=== PATIENT | male | born 1960 | race African-American/Black ===

== ENCOUNTER 2016-09-14 01:19 | Emergency (ER) | payer OTHER, MEDICAID ==
[2016-09-14 01:26] VITALS: BP 149/75; BMI 25.6
--- NOTE | 2016-09-14 02:30 | DR.GENAD ---
HPI - Complaint/Symptoms Chief Complaint Doctors Comments: Patient states that he has bronchitis. He is intoxicated. He states that he has been using cocaine and he wants to be seen by mental health. Chief Complaint:: SHORT OF BREATH , DRUG ABUSE - Timing Onset of Chief Complaint: 09/14/16 PMH - PMH Past Medical History: Yes Past Medical History: Anxiety, Arthritis, CVA, Diabetes, Hypertension, ID, Seizures Past Surgical History: Yes Surgical History: Ortho Surgery - Family History History of Family Medical Conditions: Yes Family Medical History: Diabetes Mellitus, ID, Hypertension - Social History Does patient currently use any type of tobacco product: Yes Have you used tobacco products in the last 12 months: Yes Type of Tobacco Use: Cigarettes Does any household member use tobacco: No Alcohol Use: Heavy Do you use any recreational Drugs:: Yes (COCAINE) Lives With: Other Lives Where: Homeless - infectious screening In the last 2 months have you had wt loss of >10#?: NO Have you had fever, night sweats or hemotysis?: No Have you traveled outside the country in the last 6 months?: No Isolation: Standard ROS - Review of Systems Eyes: No Symptoms Reported ENTM: No Symptoms Reported Respiratoy: No Symptoms Reported Cardiovascular: No Symptoms Reported Gastrointestinal/Abdominal: No Symptoms Reported Genitourinary: No Symptoms Reported Neurological: No Symptoms Reported Musculoskeletal: No Symptoms Reported Integumentary: No Symptoms Reported Hematologic/Lymphatic: No Symptoms Reported Endocrine: No Symptoms Reported Psychiatric: No Symptoms Reported All Other Systems: Reviewed and Negative PE - Vital Signs Vitals: Temperature 97.6 F Pulse Rate 106 Respiratory Rate 24 Blood Pressure [Left Arm] 170/80 Blood Pressure [Right Arm] 138/72 Blood Pressure 149/75 O2 Sat by Pulse Oximetry 96 - General General Appearance: Alert - Head Head Exam: Normal Inspection - Eyes Eye exam: Normal Appearance, PERRL, EOMI - ENT ENT Exam: Normal Exam External Ear Exam: Normal External Inspection TM/Canal Exam: Bilateral Normal Nose Exam: Normal Nose Exam Mouth Exam: Normal Inspection Throat Exam: Normal Inspection - Neck Neck Exam: Normal Inspection - Chest Chest Inspection: Normal Inspection - Respiratory Respiratory Exam: Normal Lung Sounds Bilat Respiratory Exam: Bilateral Clear to Auscultation - Cardiovascular Cardiovascular Exam: Regular Rate, Normal Rhythm - Abdominal Exam Abdominal Exam: Normal Inspection, Normal Bowel Sounds Abdominal Tenderness: negative: RUQ, RLQ, LUQ, LLQ, Epigastrium, Suprapubic, Diffuse, Mild, Moderate, Severe, Other - Extremities Extremities Exam: Normal Inspection - Back Back Exam: Normal Inspection, Full ROM - Neurologic Neurological Exam: Alert, Oriented X3, CN II-XII Intact - Psychiatric Psychiatric Exam: Normal Affect - Skin Skin Exam: Warm, Dry, Intact - Diagnosis Discharge Problem: Acute alcohol intoxication Qualifiers: Complication of substance-induced condition: uncomplicated Qualified Code(s): F10.920 - Alcohol use, unspecified with intoxication, uncomplicated - Discharge Plan Condition: Stable - Follow ups/Referrals Follow ups/Referrals: NFD,None [Primary Care Provider] - 3 days - Instructions
== END 2016-09-14 06:57 | disposition home or self-care (01) ==
LOC: ER 01:19
DX: F10.920 Alcohol use, unspecified with intoxication, uncomplicated (principal)
CPT/HCPCS: 99281; 99282